=== PATIENT | female | born 1945 | race Caucasian/White ===

== ENCOUNTER → 2017-09-20 12:00 | Inpatient (IN) | payer MEDICARE, BC ==
--- NOTE | 2017-09-08 20:30 | HP ---
HISTORY AND PHYSICAL: DATE OF ADMISSION/SURGERY: 09/18/17 DATE OF OFFICE VISIT: 09/08/17 SURGEON: Yanet Ramirez MD * (DICTATED BY RANDALL CORNEJO) PROCEDURE: Left total knee arthroplasty. CHIEF COMPLAINT: Left knee pain. HISTORY OF PRESENT ILLNESS: Ms. Jeffers is a 71-year-old female with complaints of left knee pain. She has failed conservative management and elected to proceed with a left total knee arthroplasty, which is scheduled for 09/18/[address] Ramirez. PAST MEDICAL HISTORY: AFib and aflutter, hypertension, high cholesterol, and osteoarthritis. PAST SURGICAL HISTORY: Cardiac ablation, tonsillectomy, tubal ligation, hysterectomy, appendectomy, carpal tunnel release, D and C, and rhinoplasty. CURRENT MEDICATIONS: 1. Losartan potassium 25 mg daily. 2. Centrum Silver. 3. Vitamin D3. 4. Xarelto 20 mg daily. 5. Flecainide acetate 50 mg twice a day. 6. Atorvastatin calcium. ALLERGIES: Denies. FAMILY HISTORY: Coronary artery disease and diabetes. SOCIAL HISTORY: She is a 71-year-old female. She lives with her and 2 sons. She is retired. She does not smoke or use drugs. She uses alcohol rarely. REVIEW OF SYSTEMS: A complete 14-point review of systems was reviewed with the patient, was all negative or noncontributory. She denies history of DVT, hepatitis C, or HIV. PHYSICAL EXAMINATION GENERAL: She is well developed, well nourished, in no acute distress. VITAL SIGNS: She stands 5 feet 4 inches tall, weighs 190 pounds. Her blood pressure is 160/84, heart rate 60. HEENT: Normocephalic, atraumatic. NECK: Supple. No palpable lymph nodes. PULMONARY: The lungs are clear to auscultation bilaterally. CARDIO: Regular rate and rhythm. Strong S1 and S2. ABDOMEN: Soft, nontender, nondistended. NEUROLOGICAL: Alert and oriented x3. Cranial nerves II through XII are intact. MUSCULOSKELETAL: Left lower extremity skin is intact. There are no open wounds or abrasions. She has tenderness over the medial and lateral joint line. 15 to 110 degrees of flexion with patellofemoral crepitus. She is distally neurovascularly intact. ASSESSMENT AND PLAN: Ms. Jeffers is a 71-year-old female with continued complaints of left knee pain. She has failed conservative management and elected to proceed with a left total knee arthroplasty which is scheduled for with Dr. Ramirez. Dr. Ramirez discussed the risks and benefits of the surgery at today's visit and all of her questions were answered. Percocet and Colace were sent to her pharmacy for postoperative pain control. She will restart Xarelto for DVT prophylaxis and she will follow up with Dr. Ramirez 2 weeks after the surgery. RANDALL CORNEJO [id number]/[facility] #: [id number] TIM
[2017-09-18 11:49] LABS: INR 0.94 (0.77-1.02)
--- NOTE | 2017-09-18 16:47 | RAD ---
INDICATION: Status post total left knee replacement surgery. COMPARISON: Comparison is made with a prior x-ray study of the knee from [facility] 2018. TECHNIQUE: 2 views of the left knee were obtained. FINDINGS: The patient is status post total left knee replacement surgery. The bones and prostheses are in normal alignment. There is a surgical drain anterior to the distal femur. IMPRESSION: STATUS POST TOTAL LEFT KNEE REPLACEMENT SURGERY.
[2017-09-18] MEDS: oxyCODONE/Acetamin 5/325 MG* TAB PO PRN (18:46)
--- NOTE | 2017-09-18 20:58 | CONS ---
CC: Marielena Arellano MD; Dr. Vernon; Dr. Ramirez * CONSULTATION REPORT: DATE OF CONSULT: 09/18/17 QUILL MACHINE TENDER: Dr. Vernon. PRIMARY CARE PROVIDER: Marielena Arellano MD CHIEF COMPLAINT: Consultation was requested due to status post left knee replacement and chief complaint is left knee pain. HISTORY OF PRESENT ILLNESS: Belinda Jeffers is a 71-year-old female with history of paroxysmal atrial fibrillation, on Xarelto and flecainide, who is status post elective left hip replacement surgery performed by Dr. Ramirez. Dr. Ramirez asked Medicine to consult on the patient to assist with medical management of the patient's chronic conditions. The patient is seen in postoperative unit. She is complaining of "a funny feeling in my left leg." She has no other complaints. PAST MEDICAL HISTORY: 1. History of atrial flutter/fibrillation, status post ablation on 10/14/16. Despite the ablation, the patient still continues to go in and out of AFib, as per Dr. Vernon's note. Currently, she is on Xarelto and flecainide as outpatient. 2. Hypertension. 3. History of carpal tunnel syndrome and release. 4. Status post tonsillectomy. 5. History of nose surgery. 6. History of DIC in the past. 7. History of tubal ligation. 8. History of total hysterectomy. 9. Appendectomy. 10. History of dyslipidemia. MEDICATIONS: At home include: 1. Xarelto 20 mg daily. The patient stopped it 3 days prior to surgery. 2. Multivitamin 1 tablet daily. 3. Losartan 25 mg daily. 4. Flecainide 50 mg b.i.d. 5. Vitamin D3, 3000 units daily. 6. Zyrtec 10 mg daily. 7. Atorvastatin 20 mg daily. 8. Acetaminophen 500 mg on a p.r.n. basis. ALLERGIES: NIACIN. FAMILY HISTORY: Positive for mother with history of hypertension and diabetes. Father of an aneurysm. SOCIAL HISTORY: The patient is . She denies any tobacco, alcohol, or drug use. Her surrogate is her , Norm. 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 REVIEW OF SYSTEMS: Please see history of present illness. Please note that the patient is mildly sedated after a surgery, but all the remaining 12 systems reviewed with the patient and were otherwise negative. PHYSICAL EXAM: Blood pressure of 137/71, heart rate of 70 and regular, respiratory rate 16, oxygen saturation 100% on 4 L of oxygen via nasal cannula, temperature of 98.6. General: The patient is a very pleasant 71-year-old female, who is in no acute distress. Alert, awake, and oriented x3. HEENT: Head atraumatic, normocephalic. Eyes: Pupils are equal, reactive to light and accommodation. Oropharynx clear. Mucosa moist. Neck: Supple. No JVD, no bruits bilaterally. Cardiovascular: Regular rate and rhythm. No murmur. Respiratory: Clear to auscultation bilaterally. Abdomen: Soft, nontender. Bowel sounds are present in all 4 quadrants. Extremities: There is no edema. Pulses +2 bilaterally. No clubbing or cyanosis. Around the left knee the patient has a cryo unit in place and postsurgical dressings . She has also a drain attached to the left knee. Neuro Evaluation: Speech clear. Cranial nerves II through XII grossly intact. Motor strength is 5/5 bilaterally. The left lower extremity range of motion was not evaluated due to immediate postoperative time. LABORATORY DATA: Included INR today reported of 1.94. There were no other labs available. ASSESSMENT AND PLAN: 1. In regards to the patient's paroxysmal atrial fibrillation. Flecainide is going to be continued. The patient is to be placed back on Xarelto whenever it is appropriate from the Ortho standpoint. 2. In regards to the patient's hypertension, the patient's losartan is going to be held in the immediate postoperative time. 3. Lipitor which the patient takes for dyslipidemia is going to be held due to postop state. 4. For DVT prophylaxis that is being directed by the patient's surgeon, Dr. Ramirez. 5. The patient's code status is full and her surrogate is her , Norm. TIME SPENT: Approximately 55 minutes was spent on consultation of this patient. Thank you very much for allowing me to see your patient in consultation. We will follow on a daily basis. [id number]/[facility] #: [id number] TIM
[2017-09-18] MEDS: Docusate CAP* 100 MG PO SCH (21:20)
[2017-09-18] MEDS: Magnesium Hydroxide LIQ* 30 ML UDC PO SCH (21:20)
[2017-09-18] MEDS: ceFAZolin 1 GM in Dextrose (*) 1 GM/50 ML BAG IVPB SCH (21:21)
[2017-09-18] MEDS: Flecainide TAB* 100 MG PO SCH (21:21)
[2017-09-19] MEDS: ceFAZolin 1 GM in Dextrose (*) 1 GM/50 ML BAG IVPB SCH ×2 (05:03→12:24)
[2017-09-19] MEDS: oxyCODONE TAB* 5 MG TAB PO PRN (05:22)
[2017-09-19 05:51] LABS: Hematocrit 36 % (35-47); Hemoglobin 12.5 g/dl (12.0-16.0); Mean Platelet Volume 9 um3 (7.4-10.4); Platelet Count 213 10^3/ul (150-450)
[2017-09-19 06:03] LABS: INR 1.01 (0.77-1.02)
[2017-09-19 06:09] LABS: EGFR Non-African American 77.4 (>60)
[2017-09-19] MEDS: oxyCODONE/Acetamin 5/325 MG* TAB PO PRN ×3 (08:06→18:35)
[2017-09-19] MEDS: Flecainide TAB* 100 MG PO SCH ×2 (09:15→20:52)
[2017-09-19] MEDS: Magnesium Hydroxide LIQ* 30 ML UDC PO SCH ×2 (09:16→20:52)
[2017-09-19] MEDS: Vitamin THERAPEUTIC TAB PO SCH (09:16)
[2017-09-19] MEDS: Docusate CAP* 100 MG PO SCH ×2 (09:16→20:52)
[2017-09-19] MEDS: Enoxaparin(*) 30 MG/0.3 ML SYR SUBCUT SCH (09:18)
--- NOTE | 2017-09-19 11:20 | PN ---
Progress Note - Progress Note Date of Service: 09/19/17 SOAP: Subjective: 71 y/o female s/p L TKA 09/[address] Ramirez. Patient concerned about reaction to lovenox as had multiple reactions in past, however none currently. Pain controlled, working with PT. VSS afebrile overnight. Objective: General- well appearing, NAD AO sitting in chair comfortably MSK- L LE- dressing intact, no drainage noted, drain removed by Dr. Ramirez this AM. + DF/PF b/l, PT 2+ b/l, neg homans. sensation grossly intact. Vital Signs Temp 98.2 F 09/19/17 03:25 Pulse 72 09/19/17 03:25 Resp 19 09/19/17 08:06 BP 133/51 09/19/17 03:25 Pulse Ox 98 09/19/17 04:48 Intake & Output 09/18/17 09/19/17 09/19/17 18:59 06:59 18:59 Intake Total 1999 3440 360 Output Total 1850 2800 Balance 150 640 360 Weight 86.636 kg Intake: IV Fluids 1999 955 LR 1999 955 IVPB 60 CEFAZOLIN 60 Oral 2425 360 Output: Urine 450 So 1600 2350 Estimated Blood Loss 250 Other: # Bowel Movements 0 Assessment: Stable 71 y/o female s/p L TKA 09/[address] Ramirez. Plan: - Finish post-op cefazolin - Continue current pain regimens - Lovenox for DVT while in hosp, restart xarelto at D/C - Continue PT/ OT - Likely D/C over weekend to home, home care set up Active Medications Generic Name Dose Route Start Last Admin Trade Name Freq PRN Reason Stop Dose Admin Acetaminophen 650 mg 09/18/17 14:40 Tylenol Tab* PO Q4H PRN PAIN OR TEMPERATURE Bisacodyl 10 mg 09/18/17 14:40 Dulcolax Supp* MO DAILY PRN constipation Cyclobenzaprine HCl 10 mg 09/18/17 14:40 Flexeril Tab* PO TID PRN SPASMS Diphenhydramine HCl 25 mg 09/18/17 14:40 Benadryl Iv* IV Q6H PRN itching Docusate Sodium 100 mg 09/18/17 21:00 09/19/17 09:16 Colace Cap* PO 100 mg BID JIM Administration Enoxaparin Sodium 30 mg 09/19/17 09:00 09/19/17 09:18 Lovenox(*) SUBCUT 30 mg Q24H JIM Administration Flecainide Acetate 50 mg 09/18/17 21:00 09/19/17 09:15 Tambocor Tab* PO 50 mg BID JIM Administration Cefazolin Sodium/Dextrose 1 gm in 50 mls @ 200 mls/hr 09/18/17 21:00 12:24 Kefzol 1 Gm In Dextrose Duplex (*) IVPB 09/19/17 13:14 200 mls/hr Q8H JIM Administration Lactated Ringer's 1,000 mls @ 100 mls/hr 09/18/17 15:00 09/19/17 03:08 Lactated Ringers 1000 Ml Bag* IV 100 mls/hr PER RATE JIM Administration Losartan Potassium 25 mg 09/20/17 09:00 Cozaar Tab* PO QAM JIM Magnesium Hydroxide 30 ml 09/18/17 21:00 09/19/17 09:16 Milk Of Magnesia Liq* PO 30 ml BID JIM Administration Magnesium Hydroxide 30 ml 09/18/17 14:40 Milk Of Magnesia Liq* PO Q6H PRN constipation Morphine Sulfate 2 mg 09/18/17 14:40 Morphine Inj (Syringe)* IV Q2H PRN PAIN - UNCONTROLLED Multivitamins 1 tab 09/19/17 09:00 09/19/17 09:16 Theragran Tab* PO 1 tab DAILY JIM Administration Ondansetron HCl 4 mg 09/18/17 14:40 Zofran Inj* IV Q6H PRN nausea Oxycodone HCl 10 mg 09/18/17 14:40 09/19/17 05:22 Roxycodone Tab* PO 10 mg Q4H PRN Administration PAIN - SEVERE Oxycodone/Acetaminophen 2 tab 09/18/17 14:40 09/19/17 12:20 Percocet 5/325 Tab* PO 2 tab Q4H PRN Administration PAIN - MODERATE TO SEVERE Oxycodone/Acetaminophen 1 tab 09/18/17 14:40 09/19/17 08:06 Percocet 5/325 Tab* PO 1 tab Q4H PRN Administration PAIN - MODERATE Polyethylene Glycol/Electrolytes 17 gm 09/18/17 14:40 Miralax* PO DAILY PRN Constipation
--- NOTE | 2017-09-19 12:05 | PN ---
Subjective Date of Service: 09/19/17 Interval History: Pt feels well. Walked to the bathroom today Objective Active Medications: Acetaminophen (Tylenol Tab*) 650 mg PO Q4H PRN PRN Reason: PAIN OR TEMPERATURE Bisacodyl (Dulcolax Supp*) 10 mg UT DAILY PRN PRN Reason: constipation Cyclobenzaprine HCl (Flexeril Tab*) 10 mg PO TID PRN PRN Reason: SPASMS Diphenhydramine HCl (Benadryl Iv*) 25 mg IV Q6H PRN PRN Reason: itching Docusate Sodium (Colace Cap*) 100 mg PO BID [facility] Last Admin: 09/19/17 09:16 Dose: 100 mg Enoxaparin Sodium (Lovenox(*)) 30 mg SUBCUT Q24H [facility] Last Admin: 09/19/17 09:18 Dose: 30 mg Flecainide Acetate (Tambocor Tab*) 50 mg PO BID [facility] Last Admin: 09/19/17 09:15 Dose: 50 mg Cefazolin Sodium/Dextrose (Kefzol 1 Gm In Dextrose Duplex (*)) 1 gm in 50 mls @ 200 mls/hr IVPB Q8H [facility] Stop: 09/19/17 13:14 Last Admin: 09/19/17 05:03 Dose: 200 mls/hr Lactated Ringer's (Lactated Ringers 1000 Ml Bag*) 1,000 mls @ 100 mls/hr IV PER RATE [facility] Last Admin: 09/19/17 03:08 Dose: 100 mls/hr Magnesium Hydroxide (Milk Of Magnesia Liq*) 30 ml PO BID [facility] Last Admin: 09/19/17 09:16 Dose: 30 ml Magnesium Hydroxide (Milk Of Magnesia Liq*) 30 ml PO Q6H PRN PRN Reason: constipation Morphine Sulfate (Morphine Inj (Syringe)*) 2 mg IV Q2H PRN PRN Reason: PAIN - UNCONTROLLED Multivitamins (Theragran Tab*) 1 tab PO DAILY [facility] Last Admin: 09/19/17 09:16 Dose: 1 tab Ondansetron HCl (Zofran Inj*) 4 mg IV Q6H PRN PRN Reason: nausea Oxycodone HCl (Roxycodone Tab*) 10 mg PO Q4H PRN PRN Reason: PAIN - SEVERE Last Admin: 09/19/17 05:22 Dose: 10 mg Oxycodone/Acetaminophen (Percocet 5/325 Tab*) 2 tab PO Q4H PRN PRN Reason: PAIN - MODERATE TO SEVERE Oxycodone/Acetaminophen (Percocet 5/325 Tab*) 1 tab PO Q4H PRN PRN Reason: PAIN - MODERATE Last Admin: 09/19/17 08:06 Dose: 1 tab Polyethylene Glycol/Electrolytes (Miralax*) 17 gm PO DAILY PRN PRN Reason: Constipation Vital Signs - 8 hr 09/19/17 09/19/17 09/19/17 04:48 05:01 05:22 Respiratory 18 18 Rate O2 Sat by Pulse 98 Oximetry 09/19/17 09/19/17 07:08 08:06 Respiratory 18 19 Rate O2 Sat by Pulse Oximetry Oxygen Devices in Use Now: Nasal Cannula Appearance: 71 yo f in nAD, AAOx3 Eyes: No Scleral Icterus, PERRLA Ears/Nose/Mouth/Throat: NL Teeth, Lips, Gums, Mucous Membranes Moist Neck: NL Appearance and Movements; NL JVP, Trachea Midline Respiratory: Symmetrical Chest Expansion and Respiratory Effort, Clear to Auscultation Cardiovascular: NL Sounds; No Murmurs; No JVD, RRR, No Edema Abdominal: NL Sounds; No Tenderness; No Distention, No Hepatosplenomegaly Lymphatic: No Cervical Adenopathy Extremities: No Clubbing, Cyanosis, - - left knee in cryo unit post op Skin: No Nodules or Sclerosis Neurological: Alert and Oriented x 3, NL Muscle Strength and Tone Result Diagrams: 09/19/17 05:07 09/19/17 05:07 Assess/Plan/Problems-Billing Assessment: 71 yo f with h/o PAF, HTN, dyslipidemia s/p elective left knee replacement - Patient Problems (1) Status post left knee replacement Comment: as per Dr. Ramirez (2) Paroxysmal atrial fibrillation Comment: in NSR today,cont felcainide, OK to start Xarelto whenever ortho deems appropiate (3) HTN (hypertension) Comment: restarting losartan Status and Disposition: Thank you for consult, will sign off and follow on a prn basis
--- NOTE | 2017-09-19 20:30 | OP ---
OPERATIVE NOTE: DATE OF OPERATION: 09/18/17 DATE OF : 45 ATTENDING SURGEON: Yanet Ramirez MD VIDEO GAME DEVELOPER: RANDALL Appiah. Ms. Colbert did help throughout the procedure with preparation of the leg, wound retraction, manipul ation of the knee, and wound closure. ANESTHESIOLOGIST: Bladimir Hicks MD ANESTHESIA: Spinal. PRE-OP DIAGNOSIS: Severe end-stage degenerative osteoarthritis of the left knee joint. POST-OP DIAGNOSIS: Severe end-stage degenerative osteoarthritis of the left knee joint. OPERATIVE PROCEDURE: 1. Left total knee arthroplasty. 2. Right knee intra-articular injection. TOURNIQUET TIME: 49 minutes. ESTIMATED BLOOD LOSS: 300 cc. COMPLICATIONS: None. SPECIMENS: Bone and cartilage from the left knee joint sent to pathology, capsular tissue stained wi th hemosiderin sent to pathology. HARDWARE: This is cemented [employer] total knee arthroplasty hardware. Two packages of Simpl ex bone cement were used. For the femur, a left size 5 femoral component posterior stabilized Legion . For the tibia, a size 3 left tibial base plate Umu II. For the insert, a 9-mm, posterior stab ilized articular insert size 3/4. For the patella, a 35-mm 7.5 thickness 3-peg all poly patella. BRIEF HISTORY/INDICATION: Ms. Jeffers is a 71-year-old female with years of increasingly severe lef t knee pain. She failed conservative treatment with anti- inflammatories, pain medication, intraarti cular injection, and physical therapy. She elected to undergo left total knee arthroplasty due to con tinued pain and decreased quality of life. Radiographs showed advanced arthritis of the left knee genesis int, worse in the patellofemoral and lateral compartment. Informed consent was obtained from the pat ient. She understood the risks of surgery included, but were not limited to bleeding, infection, dam age to nearby structures, continued pain, need for further surgery, intraoperative fracture, nerve pa lsy, hardware failure or loosening, knee stiffness, loss of motion, stroke, heart attack, blood clot, and . She wished to proceed. INTRAOPERATIVE FINDINGS: Intraoperatively, the patient was noted to have osteopenia. She had tricom partmental loss of cartilage, which was full thickness and worse in the lateral and patellofemoral co mpartment. DESCRIPTION OF PROCEDURE: Ms. Jeffers was identified in the preanesthesia unit. Her left knee was m arked as the correct operative side. The right knee was marked for an intra-articular injection unde r anesthesia. Consent was signed and placed in the chart. The patient was taken to the operating ro om. The patient was placed under spinal anesthesia without difficulty. A So catheter was placed. The right lower extremity was sterilely prepped. A preop time-out for the knee injection was perfo rmed. An intra-articular injection of 80 mg of Depo-Medrol and 6 cc 0.25% Marcaine was placed in the knee joint. There were no complications. Tourniquet was placed on the left thigh. Left lower extremity was prepped and draped in the usual st erile fashion. Preop time-out was made to correctly identify the patient's side and site. Appropria te perioperative antibiotics were given within 1 hour of incision. Tourniquet was inflated until the tourniquet time for this procedure was 49 minutes. A 12-cm midline incision was made with a 10-blade and carried down to the extensor mechanism. A new 10-blade was us ed to make a standard medial parapatellar arthrotomy. The patella was subluxed laterally. Electroca utery was used to subperiosteally elevate the soft tissue off the superomedial tibia to the mid sagit misti plane. The knee was flexed up. Anterior horn of the lateral meniscus and ACL were sharply relea sed. A drill was used to enter the distal femur. Intramedullary distal femoral cutting guide was pin karla on the distal femur. 9-mm of distal femoral bone was carefully resected. Next, the external rotation guide was placed on the distal femur. Distal femur was sized to a size 5 . Size 5 multi-cutting jig was pinned on the distal femur. Appropriate chamfer cuts were made. The PCL was completely released. The tibia was subluxed anteriorly. Extramedullary tibial cutting gu deanne was pinned on the proximal tibia. Oscillating saw was used to make the proximal tibial cut perpe ndicular to the mechanical axis of the tibia. The bone was carefully removed. The knee was brought out into full extension. The spacer block had good fit with the knee in full extension. Medial and lateral ligaments were well balanced. Flexion and extension gaps were well balanced. The knee was flexed up. Lamina cattle trader was placed both medially and laterally. Any remaining menisc us was carefully removed using electrocautery. Posterior osteophytes were removed with the curved os teotomes. Tibial tray and drop jay were placed to once again confirm a satisfactory tibial cut. This was confi rmed. A trial left size 5 femur was impacted on to the distal femur and had good fit. The box for t he posterior stabilized implant was prepared using a reamer and box cut osteotome. Size 3 tibial tra y trial with a 9-mm insert trial was placed and the knee was taken through a range of motion. The kn ee had full extension to 130 degrees of flexion. Patellofemoral tracking was satisfactory. The patella was everted. 7-mm of patellar bone and cartilage was carefully removed using an oscillat ing saw. The patella was sized to a size 35. Three pegs holes were drilled through the size 35 guid e. A 35 trial with 7.5 thickness was placed and the knee was taken to the range of motion. Patellof emoral tracking was satisfactory. All trials were carefully removed. The tibia was subluxed anteriorly and sized to a size 3. Proxima l tibia was prepared using a size 3 keel punch. All bony cut surfaces were copiously irrigated with sterile saline and dried. The final implants were cemented into place starting with the tibia follow ed by the femur and last the patella. A 9 mm insert trial was placed and the knee was brought out in to full extension. Tourniquet was turned down at 49 minutes. The knee was copiously irrigated with sterile saline. Electrocautery was used to obtain meticulous hemostasis. Once the cement had fully cured, the insert trial was removed. Any excess cement was removed from the capsule and hardware. F inal insert chosen was 9- mm posterior stabilized insert size 3/4. This was locked into position on the tibial tray. Stability of the insert was checked and rechecked and noted to be stable. The knee was once again copiously irrigated with sterile saline. Extensor mechanism was closed using interrupted #1 Vicryl over a medium Hemovac drain. The rest of the incision was closed in a layered fashion using 0 and 2-0 Vicryls. Skin was closed using running 3-0 nylon suture. The incision was covered with sterile Xeroform, 4x4s, and Webril. Michael wrap and cold pack were placed over this. The patient's anesthesia was reversed without difficulty. She was taken to the PACU in stable condit ion. Intended weightbearing will be weightbearing as tolerated. Intended DVT prophylaxis will be Lo venox for 3 days followed by restart of her home medication of Xarelto. [id number]/[facility] #: [id number]
[2017-09-20] MEDS: oxyCODONE/Acetamin 5/325 MG* TAB PO PRN ×3 (03:54→10:58)
[2017-09-20 05:56] LABS: Hematocrit 32 % (35-47); Hemoglobin 10.7 g/dl (12.0-16.0); Mean Platelet Volume 9 um3 (7.4-10.4); Platelet Count 178 10^3/ul (150-450)
[2017-09-20 06:08] LABS: INR 0.93 (0.77-1.02)
[2017-09-20] MEDS: Docusate CAP* 100 MG PO SCH (07:20)
[2017-09-20] MEDS: Vitamin THERAPEUTIC TAB PO SCH (07:20)
[2017-09-20] MEDS: Magnesium Hydroxide LIQ* 30 ML UDC PO SCH (07:21)
[2017-09-20 08:12] VITALS: BP 136/65
[2017-09-20] MEDS: oxyCODONE TAB* 5 MG TAB PO PRN (08:47)
[2017-09-20] MEDS: Flecainide TAB* 100 MG PO SCH (08:48)
[2017-09-20] MEDS: Enoxaparin(*) 30 MG/0.3 ML SYR SUBCUT SCH (08:49)
--- NOTE | 2017-09-20 09:21 | PN ---
Progress Note - Progress Note Date of Service: 09/20/17 SOAP: Subjective: Pt is doing well. Pain overnight but is controlled now. denies F/C, CP/SOB, calf pain. Has not had a BM but is passing flatus Objective: PE: 71 y/o WDWN F NAD LLE: well healed surgical inc c/d/i, calf soft NT, +5/5 DF PF ankle, NVI Vital Signs Temp Pulse Resp BP Pulse Ox 98.4 F 80 20 136/65 98 09/20/17 07:49 09/20/17 07:49 09/20/17 08:47 09/20/17 07:49 09/20/17 07:49 Laboratory Results - last 24 hr 09/20/17 09/20/17 05:34 05:34 Hgb 10.7 L Hct 32 L Plt Count 178 MPV 9 INR (Anticoag Therapy) 0.93 Assessment: Stable 71 y/o female s/p L TKA 09/[address] Ramirez POD 2 Plan: - DC to home with VNS today - Continue percocet for pain, xarelto for DVT prophylaxis, colace for constipation - WBAT Continue PT/ OT
[~2017-09-20 12:00] MED LIST: Acetaminophen TAB* 325 MG PO PRN; Atracurium* 10 MG/ML 10 ML VIAL ONE; Bisacodyl SUPP* 10 MG SUPP PR PRN; Buffered Lidocaine 0.9% SYRIN* 5 ML/SYR SYRINGE INTRADERM ONE; Buffered Lidocaine 0.9% SYRIN* 5 ML/SYR SYRINGE ONE; Bupivacaine 0.25% SDV* 30 ML ONE; Bupivacaine 0.5% SDV PF* 10-30ML VIAL ONE; Cyclobenzaprine TAB* 10 MG PO PRN; Dexamethasone IV* 4 MG/ML 1 ML (4 MG) ONE; DiMENhydriNATE IV* 50 MG/ML VIAL IV PUSH PRN; HYDROmorphone INJ* 1 MG/ML CARPUJECT SYRINGE IV PRN; Ketorolac INJ* 30 MG/ML 1 ML VIAL ONE; Losartan TAB* 25 MG PO SCH; Magnesium Hydroxide LIQ* 30 ML UDC PO PRN; Midazolam concentrated* 5 MG/ML 1 ml VIAL ONE; Morphine INJ* 2 MG/ML 1 ML CARPUJECT IV PRN; Naloxone* 0.4 MG/ML 1 ML VIAL IV PRN; Ondansetron INJ* 2 MG/ML VIAL IV PRN; Ondansetron INJ* 2 MG/ML VIAL ONE; Polyethylene Glycol 3350* 17 GM PACKET PO PRN; Propofol* 10 MG/ML 20 ML BTL IV PUSH ONE; Warfarin TAB(*) 6 MG PO ONE; diPHENhydraMINE IV* 50 MG/ML 1 ml VIAL (BENADRYL) IV PRN; fentaNYL* 50 MCG/ML 2 ML VIAL (100 MCG VIAL) IV PRN; fentaNYL* 50 MCG/ML 2 ML VIAL (100 MCG VIAL) ONE; methylPREDNISolone ACETATE 80* 80 MG/ML 1 ML VIAL ONE
--- NOTE | 2017-09-21 10:30 | DS ---
DISCHARGE SUMMARY: DATE OF ADMISSION: 09/18/17 DATE OF DISCHARGE: 09/20/17 PROVIDER: Yanet Ramirez MD * (DICTATED BY RANDALL IBRAHIM) ADMITTING DIAGNOSIS: Status post left total knee arthroplasty for treatment of left knee osteoarthritis. SECONDARY DIAGNOSES: 1. Atrial fibrillation and flutter. 2. Hypertension. 3. High cholesterol. 4. Osteoarthritis. CONSULTATIONS: Medicine and PT/OT. HISTORY OF PRESENT ILLNESS: Ms. Busch is a 71-year-old female who presented to the clinic with left knee pain due to end-stage osteoarthritis. She failed conservative measures, and therefore, agreed to undergo a left total knee arthroplasty with Dr. Ramirez on 09/18/17. HOSPITAL COURSE: Mr. Jeffers was admitted to [facility] on . She underwent a left total knee arthroplasty. Postoperatively, she recovered in the short stay surgical unit. Postop day 1, her So was removed , she was able to urinate on her own. She was advanced to a regular diet without difficulty and her pain was controlled with oral Percocet and she was restarted on home medications. Labs and vitals remained stable. She was able to weight bear as tolerated on the left lower extremity. She advanced appropriately with PT and OT. DVT prophylaxis was managed with Lovenox inpatient until Xarelto was started on discharge. By postop day 2, she was orthopedically and medically stable for discharge to home with VNS services. PHYSICAL EXAM: General: A 71-year-old well-developed, well-nourished female in on acute distress. Alert and oriented x3, appropriate mood and affect. Vital Signs: Height 5.4, weight 191, temperature 98.4, pulse rate 80, respiratory rate 16, pulse ox 98, blood pressure 136/65. Left Lower Extremity: The incision is clean, dry and intact. There is no warmth, erythema or signs of infection. The dressing was changed. Calf soft and nontender, +5/5 strength at dorsiflexion and plantar flexion, +2 DP pules. Sensation intact to light touch distally. DISCHARGE CONDITION: Stable. DISCHARGE MEDICATIONS: Her home medications resumed on discharge to include: 1. Vitamin D3 3000 units by mouth daily. 2. Centrum 1 tablet by mouth daily. 3. Losartan 25 mg 1 by mouth in the morning. 4. Atorvastatin 20 mg 1 by mouth in the evening. 5. Xarelto 20 mg by mouth in the morning. 6. Flecainide 50 mg by mouth twice a day. 7. Zyrtec 10 mg one by mouth every 6 hours as needed. 8. Tylenol 500 mg every 5 hours as needed for pain. New meds on discharge to include: 1. Colace 100 mg by mouth twice a day as needed for constipation. 2. Percocet 1 to 2 tabs every 4 to 6 hours as needed for pain. DISCHARGE INSTRUCTIONS: The patient will be weight bearing as tolerated. It is okay for her to shower postop day 3, no swimming, bathing or submerging the wound. She can use gentle soap and pat dry. Redress with gauze, Michael and tape. She should call the ortho office if she notes there is increased drainage, redness, increased pain or fever, go to the ER with chest pain or shortness of breath. She should eat a regular diet, increase fluids, and fibers. For constipation, she should use the stool softeners and call if there is no bowel movement within 48 hours or use an [id number] suppository. She will continue physical therapy and occupational therapy exercises as shown. Visiting nurses to do wound checks and she will continue her Xarelto for DVT prophylaxis. She will not need blood draws since she was not on Coumadin. She should continue Percocet for pain control. She was cautioned to not exceed 4000 mg of Tylenol since Percocet contains Tylenol. The patient will require antibiotics prior to any dental work in the future. She will be followed up by Dr. Ramirez in 10 to 14 days post op. RANDALL IBRAHIM [id number]/[facility] #: [id number] TIM
== END | disposition home health service (06) | DRG 470 ==
LOC: AA 09-18 10:18 → SSU 09-18 14:41
PROVIDERS: ADMIT Orthopaedic Surgery Adult Reconstructive Orthopaedic Surgery; ATTEND Orthopaedic Surgery Adult Reconstructive Orthopaedic Surgery
PROC: 3E0U33Z Introduction of Anti-inflammatory into Joints, Percutaneous Approach (ICD-10-PCS; 2017-09-18)
PROC: 3E0U3BZ Introduction of Anesthetic Agent into Joints, Percutaneous Approach (ICD-10-PCS; 2017-09-18)
PROC: 0SRD0J9 Replacement of Left Knee Joint with Synthetic Substitute, Cemented, Open Approach (ICD-10-PCS; principal; 2017-09-18 13:15)
DX: M17.12 Unilateral primary osteoarthritis, left knee (principal); I48.0 Paroxysmal atrial fibrillation; I10 Essential (primary) hypertension; M25.762 Osteophyte, left knee; E78.00 Pure hypercholesterolemia, unspecified; M85.862 Other specified disorders of bone density and structure, left lower leg; K59.00 Constipation, unspecified; Z98.51 Tubal ligation status; Z90.710 Acquired absence of both cervix and uterus; Z83.3 Family history of diabetes mellitus; Z82.49 Family history of ischemic heart disease and other diseases of the circulatory system; Z72.89 Other problems related to lifestyle; Z79.01 Long term (current) use of anticoagulants
CPT/HCPCS: 36415; 80048; 85014; 85018; 85049; 85610; 88304; 88305; 88311; 94760; A9270-GY; C1776; J0690; J1040; J1100; J1650; J1885; J2250; J2405; J2704; J3010

== ENCOUNTER 2018-10-20 18:54 | Emergency (ER) | payer MEDICARE, BC ==
[2018-10-20 19:27] VITALS: BP 150/82
--- NOTE | 2018-10-20 20:23 | UC ---
Respiratory Complaint HPI - HPI Summary HPI Summary: 73 yo female ill x 2 weeks Initially seemed like typical cold now with primarily chest congestion past day or two has had blood tinged phelgm no f/c no CP or sob hx of bronchitis - History of Current Complaint Chief Complaint: UCRespiratory Stated Complaint: COUGHING UP BLOOD Time Seen by Provider: 10/20/18 20:08 Hx Obtained From: Patient Onset/Duration: Gradual Onset, Lasting Weeks Timing: Constant Severity Initially: Mild Severity Currently: Moderate Pain Intensity: 0 Pain Scale Used: 0-10 Numeric Character: Cough: Productive Aggravating Factors: Nothing Alleviating Factors: Nothing Associated Signs And Symptoms: Positive: Nasal Congestion - Allergies/Home Medications Allergies/Adverse Reactions: Allergies Allergy/AdvReac Type Severity Reaction Status Date / Time niacin Allergy Intermediate Rash Verified 10/20/18 19:23 PMH/Surg Hx/FS Hx/Imm Hx Previously Healthy: Yes Cardiovascular History: Atrial Fibrillation, Other Other Cardiovascular History: ablation Respiratory History: Bronchitis Cancer History: Other Other Cancer History: uterus - Surgical History Surgical History: Yes Surgery Procedure, Year, and Place: LEFT KNEE REPLACEMENT SEP 2017;. TONSILLECTOMY;. RHINOPLASTY;. D&C X2;. TUBAL LIGATION;. HYSTERECTOMY AND APPENDECTOMY;. GANGLION CYST REMOVAL;. LEFT WRIST CARPAL TUNNEL;. CARDIAC ABLASION 2015 - Family History Known Family History: Positive: Hypertension - Social History Alcohol Use: Rare Substance Use Type: None Smoking Status (MU): Never Smoked Tobacco - Immunization History Most Recent Influenza Vaccination: 07/2017 Most Recent Pneumonia Vaccination: 2 years ago Review of Systems All Other Systems Reviewed And Are Negative: Yes Constitutional: Positive: Fatigue Skin: Positive: Negative Eyes: Positive: Negative ENT: Positive: Nasal Discharge Respiratory: Positive: Cough Cardiovascular: Positive: Negative Gastrointestinal: Positive: Negative Genitourinary: Positive: Negative Motor: Positive: Negative Neurovascular: Positive: Negative Neurological: Positive: Negative Psychological: Positive: Negative Physical Exam Triage Information Reviewed: Yes Appearance: Well-Appearing, No Pain Distress, Well-Nourished Vital Signs: Initial Vital Signs Temp 97.3 F 10/20/18 19:22 Pulse 72 10/20/18 19:22 Resp 18 10/20/18 19:22 BP 150/82 10/20/18 19:22 Pulse Ox 100 10/20/18 19:22 Vital Signs Reviewed: Yes Eyes: Positive: Conjunctiva Clear ENT: Positive: Hearing grossly normal, Pharynx normal, Nasal congestion, TMs normal, Uvula midline. Negative: Tonsillar swelling, Tonsillar exudate, Trismus , Muffled voice, Hoarse voice, Sinus tenderness Neck: Positive: Supple, Nontender Respiratory: Positive: No respiratory distress, No accessory muscle use, Wheezing Cardiovascular: Positive: RRR, No Murmur Musculoskeletal: Positive: ROM Intact, No Edema Neurological: Positive: Alert Psychological Exam: Normal Skin Exam: Normal Diagnostics - Radiology No standard instances Radiology Interpretation Completed By: ED Physician Summary of Radiographic Findings: NAD Respiratory Course/Dx - Differential Dx/Diagnosis Provider Diagnosis: Acute bronchitis Discharge - Sign-Out/Discharge Documenting (check all that apply): Patient Departure All imaging exams completed and their final reports reviewed: No - Discharge Plan Condition: Stable Disposition: HOME Prescriptions: Amoxicillin PO (*) [Amoxicillin 875 MG (*)] 875 mg PO BID #14 tab Patient Education Materials: Acute Bronchitis (ED), How to Use a Metered-Dose Inhaler and a Spacer (ED) Referrals: Marielena Arellano MD [Primary Care Provider] - 1 Week Additional Instructions: official XR report pending - Billing Disposition and Condition Condition: STABLE Disposition: Home
[2018-10-20] MEDS ORDERED: Albuterol HFA INHALER* 8 gm MDI INH ONE (20:31)
[2018-10-20] MEDS ORDERED: Amoxicillin PO (*) 500 MG CAP PO ONE (20:31)
--- NOTE | 2018-10-21 14:32 | UC ---
- Progress Note Progress Note: RADIOLOGY REPORT REVIEWED. NO EVIDENCE FOR ACTIVE CARDIOPULMONARY DISEASE. NO CHANGE IN MGMT. Course/Dx - Diagnoses Provider Diagnoses: Acute bronchitis Discharge - Sign-Out/Discharge Documenting (check all that apply): Post-Discharge Follow Up All imaging exams completed and their final reports reviewed: Yes - Discharge Plan Condition: Stable Disposition: HOME Prescriptions: Amoxicillin PO (*) [Amoxicillin 875 MG (*)] 875 mg PO BID #14 tab Patient Education Materials: Acute Bronchitis (ED), How to Use a Metered-Dose Inhaler and a Spacer (ED) Referrals: Marielena Arellano MD [Primary Care Provider] - 1 Week Additional Instructions: official XR report pending - Billing Disposition and Condition Condition: STABLE Disposition: Home
== END 2018-10-20 20:47 | disposition home or self-care (01) ==
LOC: UCCORT 18:54
DX: J20.9 Acute bronchitis, unspecified (principal); Z88.8 Allergy status to other drugs, medicaments and biological substances
CPT/HCPCS: 71046; 99213; A9270-GY; G0463

== ENCOUNTER 2020-01-21 20:50 | Observation (INO) ==
[2020-01-22 00:17] LABS: ABS Basophils 0.1 10^3/ul (0-0.2); ABS Eosinophils 0.1 10^3/ul (0-0.6); ABS Lymphocytes 1.8 10^3/ul (1.0-4.8); ABS Monocytes 0.7 10^3/ul (0-0.8); Eosinophil % 0.5 %; Hematocrit 41 % (35-47); Hemoglobin 14.3 g/dL (12.0-16.0); Lymphocyte % 13.8 %; Mean Corpuscular HGB Conc 35 g/dL (31-36); Mean Corpuscular Hemoglobin 31 pg (27-31); Mean Corpuscular Volume 88 fL (80-97); Mean Platelet Volume 8.4 fL (7.4-10.4); Platelet Count 253 10^3/uL (150-450); Red Blood Count 4.66 10^6 /uL (3.70-4.87); Red Cell Distribution Width 13 % (10-15); White Blood Count 13.3 10^3/uL (3.5-10.8)
[2020-01-22] MEDS ORDERED: oxyCODONE/Acetamin 5/325 mg TAB PO PRN (00:38)
[2020-01-22 00:43] LABS: Albumin 4.4 g/dL (3.2-5.2); Albumin/Globulin Ratio 1.6 (1-3); C Reactive Protein 3.06 mg/L (<8.01); Calcium 9.5 mg/dL (8.6-10.3); EGFR African American 94.3 (>60); EGFR Non-African American 77.9 (>60); Globulin 2.7 g/dL (2-4); Potassium 3.9 mmol/L (3.5-5.0); Total Bilirubin 0.6 mg/dL (0.2-1.0); Total Protein 7.1 g/dL (6.4-8.9)
[2020-01-22] MEDS ORDERED: Morphine 2 MG/ML SYRINGE IV ONE (00:47)
[2020-01-22] MEDS ORDERED: Morphine 2 MG/ML SYRINGE IV PRN (01:15)
[2020-01-22 01:48] LABS: Uric Acid 4.8 mg/dL (2.3-6.6)
[2020-01-22 01:49] LABS: Erythrocyte Sed Rate 8 mm/Hr (0-29)
[2020-01-22] MEDS: oxyCODONE/Acetamin 5/325 mg TAB PO PRN ×2 (03:16→18:17)
[2020-01-22] MEDS ORDERED: Rivaroxaban 20 mg TAB (*) PO SCH (08:30)
[2020-01-22] MEDS ORDERED: Multivitamins/Minerals TAB PO SCH (09:00)
[2020-01-22 14:58] LABS: Urine Appearance Cloudy; Urine Bilirubin Negative (Negative); Urine Blood Negative (Negative); Urine Color Yellow; Urine Glucose Negative (Negative); Urine Ketones Negative (Negative); Urine Nitrite Negative (Negative); Urine Protein Negative (Negative); Urine Specific Gravity 1.008 (1.010-1.030); Urine Urobilinogen Negative (Negative)
[2020-01-22 15:07] LABS: Urine Bacteria Absent (Absent); Urine Red Blood Cell Trace(0-2/hpf) (Absent); Urine Squamous Epithelial Cell Present (Absent); Urine White Blood Cell Trace(0-5/hpf) (Absent)
[2020-01-22 17:13] VITALS: BP 149/66
== END 2020-01-22 18:45 | disposition home or self-care (01) ==
LOC: ED 20:50 → SSU 20:50
PROVIDERS: ADMIT Nurse Practitioner Family; ATTEND Hospitalist